=== PATIENT | female | born 1995 | race Caucasian/White ===

== ENCOUNTER 2021-10-27 20:34 | Emergency (ER) | payer OTHER, SELFPAY ==
[2021-10-27 20:39] VITALS: BP 130/83; PULSE 97; RESP 18; TEMP 36.7; O2SAT 99; BMI 21.9
--- NOTE | 2021-10-28 10:23 | ED_ITS ---
HPI - Burn/Smoke Inhalation General Date Seen: 10/27/21 Chief complaint: Unspecified Complaint, Adult Stated complaint: Sunburn Time Seen by Provider: 10/27/21 21:10 Source: patient and RN notes reviewed History of Present Illness HPI Narrative: 25-year-old young woman presenting to the emergency department with concern of sunburn resulting in swelling of the lower extremities. She was tubing 3 days ago and it ended up going about twice as long as they were anticipating. Furthermore the sunscreen she was using she says was not water proof. She is not describing nausea. Has been treating with elevation ice aloe. No unusual urination described. Does have more pain after longer periods of rest. No fever. Given the swelling and the redness she notes that a family member who is retired nurse recommended that she be evaluated. It has also started to blister. Works as a [employer] in this facility in concerned about extended period of time on her feet. Related Data Home Medications Medication Instructions Recorded Confirmed No Known Home Medications 10/27/21 10/27/21 Allergies Allergy/AdvReac Type Severity Reaction Status Date / Time No Known Drug Allergies Allergy Verified 10/27/21 20:43 Review of Systems Status of ROS: Reports: 6 or more systems reviewed and unremarkable except as noted in History and below [facility] Social History Smoking Status: Current every day smoker How often do you have a drink containing alcohol: never AUDIT-C Alcohol total score: 0 Non-prescribed substance use: denies use service: No Exam Narrative: Exam Narrative: Pleasant. Well nourished. NAD. Breathing easily. Cranial nerves 2-12 intact. Moving all extremities without difficulty. Extremities are well perfused. There is moderate swelling from the knees down. Skin mild calor and erythema from the knees down to the ankles where there is a patch of normal skin and then sunburned continuing on the mid dorsum of each foot. There is mild calor. Mild discomfort but no significant pain to palpation. There is clear blistering that has set up on the mid tibia anteriorly bilaterally. Const: Vital Signs, click to edit/add: Vital Signs - 24 hr 10/27/21 20:39 Temperature 98.0 F Pulse Rate [Left P ulse Oximeter] 97 Respiratory Rate 18 Blood Pressure [Ri ght Upper Arm] 130/83 Pulse Oximetry 99 Documenting provider has reviewed patient's vital signs: yes Course Course Hospital Course: I did discuss treatment options. Sounds like she is doing a lot of the right things already. I did place antibiotic ointment over the blisters, Telfa pad and then wrapped both lower extremities with Sanchez wraps. Vital Signs Vital signs: Initial Vital Signs Temperature 98.0 F 10/27/21 20:39 Temperature Source Temporal Artery Scan 10/27/21 20:39 Pulse Rate 97 10/27/21 20:39 Respiratory Rate 18 10/27/21 20:39 Blood Pressure 130/83 10/27/21 20:39 Blood Pressure Mean 98 10/27/21 20:39 Blood Pressure Position Sitting 10/27/21 20:39 Pulse Oximetry 99 10/27/21 20:39 Oxygen Delivery Method 10/27/21 20:39 Vital Signs Temperature 98.0 F 10/27/21 20:39 Pulse Rate 97 10/27/21 20:39 Respiratory Rate 18 10/27/21 20:39 Blood Pressure 130/83 10/27/21 20:39 Pulse Oximetry 99 10/27/21 20:39 Temperature 98.0 F 10/27/21 20:39 Pulse Rate 97 10/27/21 20:39 Respiratory Rate 18 10/27/21 20:39 Blood Pressure 130/83 10/27/21 20:39 Pulse Oximetry 99 10/27/21 20:39 MDM - Burn/Smoke Inhalation MDM Narrative Medical decision making narrative: I do think trying to get rid of some of the fluid will be most helpful in discomfort. I do not see significant secondary signs of cellulitis here. Dispensed Sanchez wraps for continued compression as tolerated. To continue with aloe. Think another day away from work would be a good idea just to get her legs up. She does not feel she needs more medication for pain control. See discharge for further recommendations. Work note was written Medical Records Attestation: I reviewed the patient's medical records. Discharge Plan Discharge Clinical Impression: Sunburn of second degree Patient Disposition: Home, Self-Care Condition: Stable Additional Instructions: I would still try to cool/ice your legs 2-3 times daily over the next few days. Might just want to put your legs in 5 gal buckets of moderately iced water. Can also keep wash cloths/towels in a tub of water in the Fridge and apply cool moist cloths to your legs. Aloe gel copiously applied may still be helpful over the next few days. Watch for marked increase in pain, deepening redness, fever. Important to stay well hydrated. Use this compression or similar to push fluid out for more comfort. Is not critical though. Should help with discomfort though. At rest continue to get your legs elevated as you described. Prescriptions: No Action No Known Home Medications 0RF Follow Up/Referrals: Meghana Massey MD [Primary Care Provider] - Stand Alone Forms: [facility] Info Instructions Soraya-Emily/[facility] Nines Burn Citation [email or web address]
== END 2021-10-27 22:35 | disposition home or self-care (01) ==
LOC: ED 21:55
PROVIDERS: Emergency Provider Family Medicine; PCP Internal Medicine
DX: L55.1 Sunburn of second degree (principal)
CPT/HCPCS: 99282

== ENCOUNTER 2022-01-04 20:29 | Emergency (ER) | payer OTHER, SELFPAY ==
[2022-01-04 20:44] VITALS: BP 159/95; PULSE 93; RESP 18; TEMP 36.9; O2SAT 99; BMI 21.0
--- NOTE | 2022-01-04 21:12 | ED.TRAUMA ---
HPI - Trauma General Time Seen by Provider: 21:12 Date Seen: 01/04/22 Chief Complaint: Head Injury/Pain Stated Complaint: Dizziness, hit head yesterday Time Seen by Provider: 01/04/22 20:57 Source: patient and RN notes reviewed Mode of arrival: ambulatory Limitations: no limitations History of Present Illness HPI narrative: Ambreen is a very pleasant 26-year-old female previously healthy who comes to the emergency room with new onset dizziness and lightheadedness after having a head injury 2 nights ago. Patient notes that around midnight on Wednesday or over 36 hours ago she was camping with her mom and was in a bunk. She states she felt very claustrophobic and rolled over but ended up falling to the ground approximately 6 ft striking her head and her nose. She notes that she did not get knocked out and remembers crying and remembers her mom was there. She states that since then she has been using Advil and icing and has actually felt okay. She had no complaints and drove home tonight. She states however that when she got home and was unpacking she suddenly became very dizzy/lightheaded especially when bending over. She also notes like she is having a hard time finding her words. She notes no fevers chills or changes in her vision. She does agree that she has some slight neck pain with movement. She did not have loss of consciousness nor did she hurt her abdomen back. She states that she has some soreness on her left leg but she has been able to walk without difficulty. Past medical history: Tobacco use Family history: No history of bleeding disorders Social history: 1 pack cigarettes a day, occasional alcohol use. MD complaint: fall Onset (ago): day(s) Loss of Consciousness: no Location: head and face Review of Systems Status of ROS: Reports: 10 or more systems reviewed and unremarkable except as noted in History and below Const: Denies: fever or chills Eyes: Reports: other (Has noticed some slight swelling around the right eye.); Denies: change in vision, blurry vision, blind spots or light sensitivity ENMT: Reports: neck pain; Denies: throat pain, throat swelling or difficulty swallowing Cardio: Denies: chest pain, palpitations or shortness of breath with exertion Resp: Denies: shortness of breath or cough GI: Denies: abdominal pain, nausea, vomiting or difficulty swallowing : Denies: painful urination or urinary frequency Musculo: Reports: neck pain and extremity pain (Left lateral thigh); Denies: back pain Integ/Breast: Denies: rash Neuro: Reports: dizziness and difficulty communicating thoughts; Denies: headache, numbness in extremities or weakness in extremities Allergy/Immuno: Denies: throat swelling Exam Const: Vital Signs, click to edit/add: Vital Signs - 24 hr 01/04/22 20:44 01/04/22 22:30 Temperature 98.5 F Pulse Rate [Pulse Oximeter] 93 83 Respiratory Rate 18 16 Blood Pressure [15 ] 159/95 H 127/94 H Pulse Oximetry 99 100 Oxygen Delivery Me thod Room Air Documenting provider has reviewed patient's vital signs: yes Common normals: no apparent distress, oriented x3, no limitations and alert Exam limitations: no altered mental status General appearance: cooperative, comfortable and well kempt Orientation/consciousness: Yes awake, Yes oriented to person, Yes oriented to place and Yes oriented to time HENMT: Common normals: normocephalic, external ears normal and TM's normal bilaterally Head and scalp: normocephalic and abrasion (Left forehead. Approximately silver dollar sized area of superficial scabb) Nose: nares normal and septum normal External ear: external ears normal Tympanic membrane: TM's normal bilaterally Mouth: oral and palatal mucosa normal Throat: posterior oropharynx normal Other: Dime-sized area of skin compromise with superficial scabbing and skin sloughing on the bridge of the nose. Tenderness and some mild erythema extending beyond this. Eye: Common normals: PERRL, EOMs intact bilaterally and conjunctivae normal General eye: normal appearance of both eyes Eyelid: other (Slight swelling of the periorbital areas right greater than left.) Conjunctiva: conjunctiva(e) normal Sclera: sclerae normal Pupil: PERRL Direct Ophthalmoscopy: no photophobia Neck & C-Spine: Common normals: no lymphadenopathy and supple General: normal visual inspection Cervical spine: pain with cervical ROM; no cervical spine tenderness Lymph: Lymphatic: no lymphadenopathy noted Resp: Common normals: normal respiratory effort and clear to auscultation bilaterally Effort & inspection: able to speak in complete sentences Auscultation: clear to auscultation bilaterally Cardio: Common normals: regular rate and regular rhythm Rate: regular rate Rhythm: regular rhythm GI: Common normals: soft to palpation and non-tender Palpation: soft : Common normals: no CVA tenderness Bladder/kidney exam: no CVA tenderness; no CVA tenderness Back & Pelvis: Common normals: no CVA tenderness, thoracic and lumbar spine normal to inspection and no thoracic nor lumbar tenderness General back: no CVA tenderness Extremity: Common normals: normal to inspection Neuro: Common normals: oriented x3 Sensorium/orientation: awake, alert, oriented to person, oriented to place and oriented to time Speech: speech normal and other (One episode of difficulty word finding.) Psych: Common normals: mental status grossly normal, thought process normal, cooperative, affect normal, speech normal and activity/motor behavior normal Appearance: well kempt Attitude: calm Activity/motor behavior: appropriate eye contact Speech: normal speech Thought process: normal thought process Thought content: normal thought content Attention/concentration: attention grossly intact Memory/cognition: memory grossly intact Insight: insight good Judgement: judgment good Course Course Hospital Course: Patient noted to have had 6 ft fall greater than 36 hours ago with sudden onset of dizziness difficulty with word finding this evening. I was only able to witness 1 episode of difficulty with word finding with clearly cause patient distress. However upon further discussion she was calm engaged and mentating normally. Given this I do feel that we should order radiological studies including a head CT, facial CT as I do think she likely has a fractured nose and cervical spine CT as she is having pain with movement. Vital Signs Vital signs: Initial Vital Signs Temperature 98.5 F 01/04/22 20:44 Temperature Source Temporal Artery Scan 01/04/22 20:44 Pulse Rate 93 01/04/22 20:44 Respiratory Rate 18 01/04/22 20:44 Blood Pressure 159/95 H 01/04/22 20:44 Blood Pressure Mean 116 01/04/22 20:44 Pulse Oximetry 99 01/04/22 20:44 Oxygen Delivery Method 01/04/22 20:44 Vital Signs Temperature 98.5 F 01/04/22 20:44 Pulse Rate 93 01/04/22 20:44 Respiratory Rate 18 01/04/22 20:44 Blood Pressure 159/95 H 01/04/22 20:44 Pulse Oximetry 99 01/04/22 20:44 Oxygen Delivery Method 01/04/22 20:44 Temperature 98.5 F 01/04/22 20:44 Pulse Rate 83 01/04/22 22:30 Respiratory Rate 16 01/04/22 22:30 Blood Pressure 127/94 H 01/04/22 22:30 Pulse Oximetry 100 01/04/22 22:30 Oxygen Delivery Method 01/04/22 20:44 MDM - Trauma MDM Narrative Medical decision making narrative: 1. Cellulitis-patient will be started on Keflex 500 mg p.o. t.i.d. x7 days. This appears to be mild case. However, should symptoms worsen recommend return to the emergency room. 2. Facial trauma-patient likely has no evidence of fracture, septal hematoma. 3. Concussion without loss of consciousness-patient noted to be experiencing some difficulty with word finding. Recommend rest for the next 48 hours. Note written to this effect. Recommend follow-up with primary MD for ongoing symptoms. Recommend against loud noises or bright lights. Avoid very high intensity activities. 4. Abnormal thyroid-recommend follow-up with primary MD for further thyroid tests and schedule of outpatient ultrasound. 5. Disposition-patient is discharged home. She should return to the emergency room for markedly worsening symptoms and as needed. Imaging Data CT scan - head: Attestation: I have reviewed the pertinent imaging results. My impression: No acute bleed or skull fracture Radiologist's impression: No acute finding Cervical spine CT: Attestation: I have reviewed the pertinent imaging results. My impression: No acute fracture Radiologist's impression: No acute fracture.. The thyroid has a diffusely nodular and heterogeneous appearance. Further assessment with outpatient thyroid ultrasound and chief nurse executive studies may be helpful to exclude Hai`s thyroiditis. Facial CT: Attestation: I have reviewed the pertinent imaging results. My impression: No acute fractures Radiologist's impression: . No acute displaced fracture of the facial bones. 2. Soft tissue swelling of the glabella. Discharge Plan Discharge Clinical Impression: Concussion without loss of consciousness, Cellulitis, Thyroid condition Patient Disposition: Home, Self-Care Condition: Unchanged Additional Instructions: 1. Start Keflex tonight for treatment of possible cellulitis nose. Fortunately no underlying fracture. 2. Rest, avoid all alcohol, as I do think you have a concussion. Do not participate in any heavy activity for at least 7 days. 3. Follow-up with your regular MD for check of your thyroid. They will likely need to draw blood tests as well as schedule an ultrasound. 4. No work 01/05 and . Stand Alone Forms: [employer] Info Instructions
--- NOTE | 2022-01-04 21:19 | CRLHL7_ITS ---
For Patients: As a result of the Century Cures Act, medical imaging exams and procedure reports are released immediately into your electronic medical record. You may view this report before your referring provider. If you have questions, please contact your health care provider. DATE: 01/05/2020. CLINICAL HISTORY: Fall with confusion. TECHNIQUE: Standard helical CT image acquisition of the brain was performed. COMPARISON: None available. FINDINGS: There is no intracranial hemorrhage. No extra-axial collection, mass effect, or midline shift. Hernandez-white matter differentiation is preserved. The ventricles are normal in size and morphology for patient age. No displaced calvarial fracture. The orbits are unremarkable. The paranasal sinuses are unremarkable. The mastoid air cells are unremarkable. The soft tissues are unremarkable. IMPRESSION: No CT evidence of acute intracranial abnormality or closed-head injury. Please note that all CT scans at this facility use dose modulation, iterative reconstruction, and/or weight-based dosing when appropriate to reduce radiation dose to as low as reasonably achievable. Dictated by Ruy Garces MD @ 01/04/2022 10:19:37 PM (Electronically Signed)
--- NOTE | 2022-01-04 21:19 | CRLHL7_ITS ---
For Patients: As a result of the Cures Act, medical imaging exams and procedure reports are released immediately into your electronic medical record. You may view this report before your referring provider. If you have questions, please contact your health care provider. INDICATION: Fall with neck pain, injury TECHNIQUE: CT Cervical Spine without i.v. contrast. Coronal and sagittal reformats were obtained. COMPARISON: None FINDINGS: Bone: No acute fractures or aggressive bone lesions are identified. Spina bifida occulta is noted in the posterior arch of C1. Mild kyphosis of the cervical spine is noted. Disc: The disc spaces are unremarkable in appearance. The facet joints are unremarkable. Soft tissue: The prevertebral soft tissues are unremarkable in appearance. The thyroid has a diffusely nodular and heterogeneous appearance. Lung: The visualized lung apices and mediastinum are unremarkable. IMPRESSIONS: 1. No acute fractures or aggressive bone lesions are identified. 2. The thyroid has a diffusely nodular and heterogeneous appearance. Further assessment with outpatient thyroid ultrasound and lens coating technician studies may be helpful to exclude Hai`s thyroiditis. Dictated by Keith Hancock MD @ 01/04/2022 10:27:10 PM Please note that all CT scans at this facility use dose modulation, iterative reconstruction, and/or weight-based dosing when appropriate to reduce radiation dose to as low as reasonably achievable. Dictated by: Keith Hancock MD @ 01/04/2022 22:28:11 (Electronically Signed)
--- NOTE | 2022-01-04 21:19 | CRLHL7_ITS ---
For Patients: As a result of the Century Cures Act, medical imaging exams and procedure reports are released immediately into your electronic medical record. You may view this report before your referring provider. If you have questions, please contact your health care provider. DATE: 01/04/2022. CLINICAL HISTORY: Trauma. TECHNIQUE: Standard CT scanning of the facial bones was performed. COMPARISON: None available. FINDINGS: No acute displaced fracture of the facial bones. The bony orbits are intact. The pterygoid plates are intact. The mandible is intact. The abel of the maxillary sinus are intact. Soft tissue swelling of the glabella. Mild to moderate leftward deviation of the nasal septum with an associated osseous spur. IMPRESSION: 1. No acute displaced fracture of the facial bones. 2. Soft tissue swelling of the glabella. Please note that all CT scans at this facility use dose modulation, iterative reconstruction, and/or weight-based dosing when appropriate to reduce radiation dose to as low as reasonably achievable. Dictated by Ruy Garces MD @ 01/04/2022 10:21:58 PM (Electronically Signed)
[2022-01-04 22:30] VITALS: BP 127/94; PULSE 83; RESP 16; O2SAT 100
== END 2022-01-04 22:47 | disposition home or self-care (01) ==
PROVIDERS: Emergency Provider Family Medicine
DX: S00.31XA Abrasion of nose, initial encounter (principal); S06.0X0A Concussion without loss of consciousness, initial encounter; J34.0 Abscess, furuncle and carbuncle of nose; W06.XXXA Fall from bed, initial encounter; Y93.84 Activity, sleeping; Y92.833 Campsite as the place of occurrence of the external cause; Y99.8 Other external cause status
CPT/HCPCS: 70450; 70486; 72125; 99284

== ENCOUNTER 2022-05-15 11:53 | Outpatient (CLI) | payer OTHER, SELFPAY ==
[2022-05-15 16:43] LABS: Chlamydia DNA Amplified* NOT DETECTED (No Detected); GC DNA Amplified* NOT DETECTED (No Detected)
[2022-05-18 15:22] LABS: HSV 1 Subtype by PCR Not Detected; HSV 2 Subtype by PCR Detected; Herpes Simplex Subtype Source Not Provided
== END 2022-05-15 11:54 | disposition home or self-care (01) ==
PROVIDERS: PCP Internal Medicine; Visit Provider Physician Assistant
DX: R10.2 Pelvic and perineal pain (principal); N89.8 Other specified noninflammatory disorders of vagina; Z11.3 Encounter for screening for infections with a predominantly sexual mode of transmission
CPT/HCPCS: 87086; 87491; 87529; 87591

== ENCOUNTER 2022-05-26 14:10 | Outpatient (CLI) | payer OTHER, SELFPAY ==
[2022-05-26 20:56] LABS: Chlamydia DNA Amplified* NOT DETECTED (No Detected); GC DNA Amplified* NOT DETECTED (No Detected)
== END 2022-05-26 14:11 | disposition home or self-care (01) ==
PROVIDERS: PCP Internal Medicine; Visit Provider Physician Assistant
DX: N89.8 Other specified noninflammatory disorders of vagina (principal)
CPT/HCPCS: 87491; 87591

== ENCOUNTER 2022-11-23 11:27 | Outpatient (CLI) | payer SELFPAY ==
[2022-11-23 11:36] LABS: Clue Cells No Clue Cells Seen (None Seen); Trichomonas No Trichomonas Seen (None Seen); Yeast No Yeast Seen (None Seen)
[2022-11-23 15:59] LABS: Chlamydia DNA Amplified* NOT DETECTED (No Detected); GC DNA Amplified* NOT DETECTED (No Detected)
== END 2022-11-23 11:28 | disposition home or self-care (01) ==
PROVIDERS: PCP Internal Medicine; Visit Provider Advanced Practice Midwife
DX: N89.8 Other specified noninflammatory disorders of vagina (principal); Z71.1 Person with feared health complaint in whom no diagnosis is made; Z11.3 Encounter for screening for infections with a predominantly sexual mode of transmission
CPT/HCPCS: 87086; 87210; 87491; 87591